=== PATIENT | male | born 1960 | race Caucasian/White ===

== ENCOUNTER → 2018-08-12 | Outpatient (CLI) | payer OTHER ==
[~2018-08-12] MED LIST: CONRAY-43 43% 50ML VIAL (Q9960) As Ordered; LIDOCAINE 1% MDV 20ML VIAL As Ordered; TRIAMCINOLONE ACETONIDE SUSP 40 MG/ML VIAL (J3301) As Ordered
== END ==
LOC: M RADPRO 10:23
DX: M13.851 Other specified arthritis, right hip (principal)
CPT/HCPCS: 20610

== ENCOUNTER → 2019-04-14 | Outpatient (REF) | payer OTHER | LOC: M LAB REF 12:37 | PROVIDERS: ATTEND Family Medicine | DX: Z79.899 Other long term (current) drug therapy (principal); Z79.3 Long term (current) use of hormonal contraceptives ==

== ENCOUNTER 2024-05-07 09:45 | Day surgery (SDC) | payer OTHER ==
[~2024-05-07] VITALS: Ht 170.2 cm; Wt 84.0 kg
[~2024-05-07 09:45] MED LIST changes: +ATOR1TAB21 PO; -CONRAY-43 43% 50ML VIAL (Q9960) As Ordered; -LIDOCAINE 1% MDV 20ML VIAL As Ordered; +LISI10TA22 PO; -TRIAMCINOLONE ACETONIDE SUSP 40 MG/ML VIAL (J3301) As Ordered
[2024-05-07] MEDS: NS 1,000 ML IV ONE (10:43)
[2024-05-07] MEDS ORDERED: propofoL 200 MG/20 ML VIAL As Ordered ONE (10:47)
[2024-05-07] MEDS ORDERED: hydrALAZINE 20MG/ML 1ML VIAL As Ordered ONE (11:10)
[2024-05-07 11:31] VITALS: TEMP 97.8
[2024-05-07 11:47] VITALS: BP 141/82; O2SAT 95
== END 2024-05-07 11:55 | disposition home or self-care (01) ==
LOC: M OPP 09:45
PROVIDERS: ATTEND Surgery
DX: Z12.11 Encounter for screening for malignant neoplasm of colon (principal); D12.6 Benign neoplasm of colon, unspecified; K57.30 Diverticulosis of large intestine without perforation or abscess without bleeding; Z79.02 Long term (current) use of antithrombotics/antiplatelets; Z79.899 Other long term (current) drug therapy
CPT/HCPCS: 45385; 88305; J0360

== ENCOUNTER 2024-10-04 13:22 | Inpatient (IN) | payer MEDICARE, OTHER ==
[~2024-10-04] VITALS: Ht 167.6 cm; Wt 86.0 kg
[2024-10-04] MEDS: NICOTINE 14 MG/24 HR TRANSDERMAL TD SCH (09:00)
[2024-10-04] MEDS: LORazepam 1 MG TAB PO ONE ×2 (14:14→22:18)
[2024-10-04 14:16] LABS: HEMATOCRIT 41.2 % (42.0-52.0); HEMOGLOBIN 14.9 g/dl (13.5-17.5); MEAN CORPUSCULAR HGB CONC 36.2 g/dl (32.0-36.5); MEAN CORPUSCULAR VOLUME 91.2 fl (80.0-96.0); PLATELET COUNT, AUTOMATED 300 10^3/uL (150-450); RED BLOOD COUNT 4.52 10^6/uL (4.30-6.10); WHITE BLOOD COUNT 8.6 10^3/uL (4.0-10.0)
[2024-10-04] MEDS ORDERED: ALPR0.25 PO (14:35)
[2024-10-04] MEDS ORDERED: SERT25TA21 PO (14:35)
[2024-10-04 14:47] LABS: ETHYL ALCOHOL (ETHANOL) 0.005 % (0.000-0.010)
[2024-10-04 14:49] LABS: ALKALINE PHOSPHATASE 66 U/L (40-129); ALT/SGPT 34 U/L (7.0-40); AST/SGOT 18 U/L (<34); BILIRUBIN,DIRECT 0.2 MG/DL (<0.4); BILIRUBIN,TOTAL 0.7 MG/DL (0.3-1.2); BLOOD UREA NITROGEN 15 MG/DL (9-23); CALCIUM LEVEL 10.1 MG/DL (8.3-10.6); CARBON DIOXIDE LEVEL 24 MMOL/L (20-31); CHLORIDE LEVEL 96 MMOL/L (98-107); CPK CREATINE PHOSPHOKINASE 64 U/L (46-171); CREATININE FOR GFR 0.77 MG/DL (0.70-1.30); GLOMERULAR FILTRATION RATE > 60.0 (>49); GLUCOSE, FASTING 164 MG/DL (74-106); MB/CK RELATIVE INDEX 1.56 (< OR =4); POTASSIUM SERUM 4.4 MMOL/L (3.5-5.1); SALICYLATE LEVEL < 3.0 MG/DL (<30); SODIUM LEVEL 132 MMOL/L (136-145); TOTAL PROTEIN 7.2 G/DL (5.7-8.2)
[2024-10-04 14:56] LABS: AMPHETAMINES LEVEL URINE NEGATIVE (NEGATIVE)
[2024-10-04 14:57] LABS: BARBITURATES URINE NEGATIVE (NEGATIVE); COCAINE METABOLITE URINE NEGATIVE (NEGATIVE); METHADONE URINE NEGATIVE (NEGATIVE); OPIATES URINE NEGATIVE (NEGATIVE); PHENCYCLIDINE URINE NEGATIVE (NEGATIVE)
[2024-10-04 14:58] LABS: BENZODIAZEPINES URINE POSITIVE (NEGATIVE); CANNABINOIDS URINE POSITIVE (NEGATIVE)
[2024-10-04] MEDS ORDERED: ACETAMINOPHEN 325 MG TAB PO PRN (18:35)
[2024-10-04] MEDS ORDERED: IBUPROFEN 400MG TAB PO PRN (18:35)
[2024-10-04] MEDS ORDERED: MAALOX 30 ML SUSP *UDC PO PRN (18:35)
[2024-10-04] MEDS ORDERED: MOM 30ML SUSPENSION UDC PO PRN (18:35)
[2024-10-04] MEDS ORDERED: MELA5CAP2 PO (20:46)
[2024-10-04] MEDS ORDERED: HOME MED LIST COMPLETE! XX SCH (20:50)
[2024-10-04] MEDS: traZODone 50 MG TAB PO PRN (21:22)
[2024-10-04] MEDS: diphenhydrAMINE 25MG CAP PO PRN (21:22)
[2024-10-04 22:30] VITALS: BP 162/100; TEMP 98; O2SAT 95
[2024-10-04 23:27] VITALS: BP 144/92; O2SAT 95
[2024-10-05 06:19] VITALS: BP 141/76; TEMP 97.5; O2SAT 100
[2024-10-05 13:17] VITALS: BP 108/69
[2024-10-05] MEDS: SERTRALINE HCL 50 MG TAB PO SCH (13:18)
[2024-10-05 14:50] VITALS: BP 108/69
[2024-10-05 18:52] VITALS: BP 138/70; TEMP 98.5; O2SAT 97
[2024-10-05] MEDS: ATORVASTATIN 20 MG TAB PO SCH (20:18)
[2024-10-05] MEDS: ALPRAZolam 0.25 MG TAB PO PRN (20:18)
[2024-10-06 06:20] VITALS: BP 159/84; TEMP 97.4; O2SAT 99
[2024-10-06] MEDS ORDERED: OLANZapine ORAL DISINTEGRATING TAB 5MG PO PRN (09:10)
[2024-10-06 14:26] VITALS: BP 140/77; TEMP 97.3; O2SAT 99
[2024-10-06] MEDS: traZODone 100 MG TAB PO PRN (20:07)
[2024-10-07 06:16] VITALS: BP 146/76; TEMP 98.3; O2SAT 97
[2024-10-07] MEDS: SERTRALINE HCL 25 MG TABLET PO SCH (09:33)
[2024-10-07 16:13] VITALS: BP 140/84; TEMP 98.1; O2SAT 95
[2024-10-08 06:28] VITALS: BP 154/86; TEMP 98; O2SAT 94
[2024-10-08 08:46] VITALS: BP 156/91
[2024-10-08] MEDS ORDERED: SERT25TA21 PO (14:48)
[2024-10-08] MEDS ORDERED: ALPR0.25 PO (14:48)
[2024-10-08] MEDS ORDERED: ABIL1TAB11 PO (14:48)
== END 2024-10-08 15:11 | disposition home or self-care (01) | DRG 881 ==
LOC: M ED 13:22 → M ED INP 19:25 → M PSY 21:10
PROVIDERS: ADMIT Psychiatry & Neurology Neurology; ATTEND Psychiatry & Neurology Neurology
DX: F32.A Depression, unspecified (principal); F41.1 Generalized anxiety disorder; I10 Essential (primary) hypertension; E78.5 Hyperlipidemia, unspecified; Z79.899 Other long term (current) drug therapy